=== PATIENT | female | born 1995 | race Caucasian/White ===

== ENCOUNTER 2021-07-29 11:47 | Emergency (ER) | payer OTHER ==
[2021-07-29 12:02] VITALS: BP 122/81; PULSE 78; TEMP 97.7; BMI 35.5
== END 2021-07-29 13:34 | disposition home or self-care (01) ==
LOC: JERFT 11:47
DX: H66.92 Otitis media, unspecified, left ear (principal)
CPT/HCPCS: 87651; 99283-25

== ENCOUNTER 2021-08-01 11:56 | Emergency (ER) | payer OTHER ==
[2021-08-01 12:47] VITALS: BP 133/86; PULSE 95; TEMP 98.6; BMI 35.5
== END 2021-08-01 13:19 | disposition home or self-care (01) ==
LOC: JERFT 11:56
DX: H60.503 Unspecified acute noninfective otitis externa, bilateral (principal)
CPT/HCPCS: 99281-25

== ENCOUNTER 2022-11-14 14:05 | Emergency (ER) | payer OTHER ==
[2022-11-14 14:12] VITALS: BP 128/82; PULSE 107; RESP 20; TEMP 98.7; BMI 34.5
== END 2022-11-14 15:33 | disposition home or self-care (01) ==
LOC: JERFT 14:05
DX: H92.01 Otalgia, right ear (principal); R50.9 Fever, unspecified; H66.011 Acute suppurative otitis media with spontaneous rupture of ear drum, right ear
CPT/HCPCS: 99283-25